=== PATIENT | female | born 1960 | race Caucasian/White ===

== ENCOUNTER → 2021-06-01 09:25 | Outpatient (BNVA) | payer MEDICARE, MEDICAID, SELFPAY | PROVIDERS: PCP Nurse Practitioner Family; Referring Provider Family Medicine; Visit Provider Orthopaedic Surgery | DX: M25.511 Pain in right shoulder (principal); M67.911 Unspecified disorder of synovium and tendon, right shoulder | CPT/HCPCS: 73030 ==

== ENCOUNTER 2021-06-03 06:00 | Outpatient (RCR) | payer MEDICARE, MEDICAID, SELFPAY | END 2021-06-08 23:59 | disposition home or self-care (01) | LOC: MPT 06:00 | PROVIDERS: PCP Nurse Practitioner Family; Visit Provider Orthopaedic Surgery | DX: M25.511 Pain in right shoulder (principal) | CPT/HCPCS: 97110; 97161 ==

== ENCOUNTER 2021-06-09 06:00 | Outpatient (RCR) | payer MEDICARE, SELFPAY | END 2021-07-08 23:59 | disposition home or self-care (01) | LOC: MPT 06:00 | PROVIDERS: PCP Nurse Practitioner Family; Visit Provider Orthopaedic Surgery | DX: M67.813 Other specified disorders of tendon, right shoulder (principal) | CPT/HCPCS: 97110; 97140; G0283 ==

== ENCOUNTER 2021-07-09 06:00 | Outpatient (RCR) | payer MEDICARE, SELFPAY | END 2021-08-08 23:59 | disposition home or self-care (01) | LOC: MPT 06:00 | PROVIDERS: PCP Nurse Practitioner Family; Visit Provider Orthopaedic Surgery | DX: M67.813 Other specified disorders of tendon, right shoulder (principal) | CPT/HCPCS: 97110; 97140; G0283 ==

== ENCOUNTER 2021-08-16 07:50 | Outpatient (CLI) | payer MEDICARE, SELFPAY ==
--- NOTE | 2021-08-16 08:00 | MR_ITS ---
WS: [id number] MRI RIGHT SHOULDER HISTORY: RIGHT shoulder pain for 4 months. No injury. COMPARISON: Shoulder radiograph 06/01/2021 TECHNIQUE: Multiplanar sequences of the shoulder joint are submitted. Moderate AC joint hypertrophy. No widening of the AC joint but there is thickening of the joint and i ncreased T2 signal. Mild encroachment upon the supraspinatus muscle. There is a moderate amount of fl uid in the subacromial and subdeltoid bursa. No os acromion. Biceps tendon is very thin caliber at th e bicipital groove but it does appear to be appropriately positioned. Supraspinatus tendon is being impinged upon by the AC joint arthritis. There is a partial tear distal ly involving the insertion site. There is additional irregularity along the surface of the tendon. Te ndon distally is surrounded by fluid. No retraction. Increased T2 signal along the tendon sheath of t he infraspinatus. Suspect there is insertion site tear with interstitial extension of the fluid. Qual ity of this examination is degraded by motion. Marked tendinopathy in the subscapularis tendon. Mild muscle atrophy without edema involving the supraspinatus. Moderate narrowing of the glenohumeral joint. Intrasubstance degeneration in the labrum. No loose bod ies are identified. MR/MR shoulder RT wo con* [id number] IMPRESSION: 1. Quality of this examination is degraded by motion artifact. Patient was leonides ble to remain still due to pain and respiratory motion. 2. Moderate AC joint hypertrophy with encroachment upon the supraspinatus. 3. Moderate size subacromial and subdeltoid bursitis and a moderate effusion s urrounding the humeral head. 4. Insertion site tears and tendinopathy of the infraspinatus and supraspinatu s tendons. 5. Moderate labral intrasubstance degeneration with moderate glenohumeral join t narrowing.
== END 2021-08-16 07:51 | disposition home or self-care (01) ==
LOC: RADSHAW 07:52
PROVIDERS: PCP Nurse Practitioner Family; Visit Provider Orthopaedic Surgery
DX: M67.911 Unspecified disorder of synovium and tendon, right shoulder (principal); M75.51 Bursitis of right shoulder; M25.411 Effusion, right shoulder; M75.101 Unspecified rotator cuff tear or rupture of right shoulder, not specified as traumatic
CPT/HCPCS: 73221

== ENCOUNTER → 2021-08-25 12:39 | Outpatient (BNVA) | payer MEDICARE, SELFPAY | PROVIDERS: PCP Nurse Practitioner Family; Visit Provider Orthopaedic Surgery | DX: Z20.822 Contact with and (suspected) exposure to COVID-19 (principal); M75.101 Unspecified rotator cuff tear or rupture of right shoulder, not specified as traumatic | CPT/HCPCS: 87635 ==

== ENCOUNTER 2021-08-30 07:04 | Day surgery (SDC) | payer MEDICARE, SELFPAY ==
[2021-08-27 15:36] VITALS: BMI 34.0
[2021-08-30] VITALS (12 sets, daily range): BP systolic 114–152; BP diastolic 68–83; PULSE 48–97; RESP 12–20; TEMP 36.1–36.7; O2SAT 96–100
--- NOTE | 2021-08-30 08:18 | ANES.PREANE2 ---
Pre-Anesthetic Assessment Pre-Anesthetic Assessment: Height/Weight: Height 1.57 m Weight 84.368 kg Temp Pulse Resp BP Pulse Ox 97.8 F 68 18 122/83 98 08/30/21 07:54 08/30/21 07:54 08/30/21 07:54 08/30/21 07:54 08/30/21 07:54 Preop Diagnosis: Rotator cuff tear, Osteoarthritis AC joint right shoulder Proposed Procedure: Operation Date: 08/30/21 09:20 Proposed Procedures p Shoulder Arthroscopy 23837 M75.101(Right) - Nagi Moncada MD s Rotator Cuff Repair(Right) - Nagi Moncada MD Familial anesthetic complications: None Was Beta Rubina taken within 24 hours: N/A Was Clonidine taken within 24 hours: N/A Last intake: > 8hrs Social: Social History: Tobacco and No alcohol Exam: Pre-Anes Outpt Exam: alert, oriented x 3, clear to auscultation bilaterally and regular rate & rhythm Airway: Cervical ROM: WNL MP: 2 Dentition: False Anesthetic Plan: ASA status: 1 Anesthesia: General and Regional (specify below) Risk of > 500 ml blood loss (7ml/kg in children): No PFSH Anesthesia PFSH: Social History Smoking and tobacco status: current every day smoker (1/2 pack per day ) Data Anesthesia Cardiac Studies: No Data to Display
[2021-08-30] MEDS: fentaNYL 50 mcg/mL INJ 2mL 100 MCG IVP (08:27)
[2021-08-30] MEDS: sodium chloride 0.9% 1,000 ML 30 ML IV (08:48)
--- NOTE | 2021-08-30 08:52 | SUR.PREOP ---
right arm supported on pillow.
[2021-08-30] MEDS: acetaminophen 500 mg Tablet 1000 MG PO (09:12)
--- NOTE | 2021-08-30 09:13 | ANES.PROC ---
Anesthesia Procedures Procedure/Date: 08/30/21 Nerve Block ^: Nerve Block 1: Main Anesthesia: general anesthesia Time Out Performed: Yes Consent: requested by attending/covering physician, from patient, risks and benefits reviewed and patient agrees to proceed Nerve block location: interscalene (R) Anesthesia monitors applied: pulse oximetry, EKG, BP cuff and oxygen Nerve block position: semi sitting Anesthetic Used: ropivicaine 0.5% and with decadron (4 mg) Amount of anesthesia used (mL): 30 Ultrasound used to: recognize landmarks Nerve Stimulator Used?: No Interscalene/Femoral BLK: 2 stimuplex 22 g needle used for position and inplane approach, visualize local anesthetic spread and no vascular puncture identified Injection: neg aspiration of heme Patient Tolerated Procedure: well and no complications Complications: none
--- NOTE | 2021-08-30 09:14 | W.PM.OPSUD ---
Surgery/Procedure H&P Update DATE OF PROCEDURE: August 30, 2021 DATE H&P PERFORMED: 08/25/21 H&P UPDATE INFORMATION: I have reviewed H&P completed within last 30 days PREOP DIAGNOSIS: Rotator cuff tear, Osteoarthritis AC joint right shoulder PLANNED PROCEDURE: Operation Date: 08/30/21 09:20 Proposed Procedures p Shoulder Arthroscopy 00817 M75.101(Right) - Nagi Moncada MD s Rotator Cuff Repair(Right) - Nagi Moncada MD
--- NOTE | 2021-08-30 11:08 | PM.OP ---
Operative Report Date of procedure: August 30, 2021 Pre-op Diagnosis: Rotator cuff tear, Osteoarthritis AC joint right shoulder, impingement Post-op diagnosis: same Post-op Findings: Same Procedure Done: Arthroscopic right rotator cuff repair, arthroscopic right subacromial decompression, arthroscopic right distal clavicle excision Implants: Dodge [employer] Nephew Helicoil 5.5 mm Pathology: none sent Surgeon: Nagi Moncada Anesthesia: General and Nerve Block (Interscalene block) Estimated blood loss (mL): 10 Complications: None Findings: The patient had a full-thickness tear of the rotator cuff approximately a centimeter and a half from anterior to posterior with a centimeter of retraction in the central rotator cuff. She had gentle spurring of her acromion and a large mitten degenerative changes of the distal clavicle. Condition: stable Disposition: PACU Procedure: The patient was taken to the operating room after interscalene block was placed by anesthesia. She was given 2 g of Ancef and a general anesthesia. She is positioned in the lateral position with her right arm in 15 pounds of traction. A timeout was performed. The shoulder was entered through the standard posterior lateral approach. The glenohumeral arthroscopy was performed. The rotator cuff was noted from the articular aspect. The biceps tendon was probed and found to be healthy. No labral tearing or chondromalacia of significance was noted. The scope was then directed to the subacromial space and a lateral portal opened up with a scalpel blade. Bursal tissue was removed revealing a prominence to the anterior acromion and the a large degenerative right distal clavicle. A 5.5 mm bur was used to remove approximately 4 mm of anterior and inferior acromion. Working through the anterior portal the distal clavicle was outlined with the Dodge and Nephew Werewolf probe and approximately 8 mm of distal clavicle excised. Attention was then focused on the rotator cuff. The full-thickness tear was identified in the central lateral rotator cuff. The footprint was lightly debrided with incisor shaver. And centrally in the footprint a Dodge and Nephew Helicoil 5.5 mm anchor was placed. A Dodge and [employer] FirstPass suture passer was used to shuttle 1 limb of Ultratape through the posterior rotator cuff tear approximately 5 mm from the edge and a second limb of tape same distance from the edge along the anterior aspect of the tear. The braided suture was passed in a central and more medial position approximately 8 mm from the tendon edge. The tape was secured followed by the braided suture bringing the rotator cuff to the debrided footprint of the bone. The repair was probed and found to be stable. The shoulder was irrigated with saline. Portals were closed with 3-0 Prolene. Sterile dressings were applied. Patient was extubated and taken recovery room in stable condition.
--- NOTE | 2021-08-30 11:50 | SUR.PHASEII ---
first ice pack applied to right shoulder.
--- NOTE | 2021-08-30 14:52 | ANE.PACU2 ---
Inpatient post-anesthesia follow up: Airway intact: Yes Vital signs: Temperature 98.1 F Pulse Rate 54 Respiratory Rate 14 Blood Pressure 117/68 Pulse Oximetry 100 Oxygen Delivery Me thod Room Air Oxygen Flow Rate 6 Fraction of Inspir ed Oxygen Hydration adequate: Yes Nausea and vomiting: No Pain level: 2 Mental status: Baseline
== END 2021-08-30 12:50 | disposition home or self-care (01) ==
PROVIDERS: PCP Family Medicine; Visit Provider Orthopaedic Surgery
PROC: (CPT 29805; principal; 2021-08-30 09:10)
PROC: (CPT 29824; 2021-08-30 09:10)
DX: M25.511 Pain in right shoulder (principal); M75.101 Unspecified rotator cuff tear or rupture of right shoulder, not specified as traumatic; M75.41 Impingement syndrome of right shoulder; M19.011 Primary osteoarthritis, right shoulder; Z88.5 Allergy status to narcotic agent; F17.200 Nicotine dependence, unspecified, uncomplicated
CPT/HCPCS: 29824; 29826; 29827; 64415; 76942; 96374; C1713; J1100; J2405; J2704; J2710; J2795; J3010; J3490; J7030

== ENCOUNTER 2021-11-25 06:00 | Outpatient (RCR) | payer MEDICARE, SELFPAY | END 2021-12-06 23:59 | disposition home or self-care (01) | LOC: MPT 06:00 | PROVIDERS: PCP Family Medicine; Referring Provider Orthopaedic Surgery; Visit Provider Orthopaedic Surgery | DX: Z47.89 Encounter for other orthopedic aftercare (principal) | CPT/HCPCS: 97110; 97161; G0283 ==

== ENCOUNTER 2021-12-07 06:00 | Outpatient (RCR) | payer MEDICARE, SELFPAY | END 2021-12-23 23:59 | disposition home or self-care (01) | LOC: MPT 06:00 | PROVIDERS: PCP Family Medicine; Referring Provider Orthopaedic Surgery; Visit Provider Orthopaedic Surgery | DX: Z47.89 Encounter for other orthopedic aftercare (principal) | CPT/HCPCS: 97110; G0283 ==

== ENCOUNTER → 2023-01-04 13:32 | Outpatient (BNVA) | payer MEDICARE, SELFPAY | PROVIDERS: PCP Family Medicine; Referring Provider Nurse Practitioner Family; Visit Provider Orthopaedic Surgery | DX: S46.912A Strain of unspecified muscle, fascia and tendon at shoulder and upper arm level, left arm, initial encounter (principal); W01.0XXA Fall on same level from slipping, tripping and stumbling without subsequent striking against object, initial encounter | CPT/HCPCS: 73030; 99213 ==

== ENCOUNTER 2023-02-22 12:46 | Outpatient (CLI) | payer MEDICARE, SELFPAY ==
--- NOTE | 2023-02-22 12:45 | MR_ITS ---
WS: [id number] EXAMINATION: MR shoulder LT wo con* [id number] ORDER DATE: 02/22/2023 1:07 PM COMPARISON: None. HISTORY: pain CONTRAST: None. TECHNIQUE: Axial T2 STAR, coronal proton density fat sat, sagittal T2 fat sat, sagittal proton densit y fat sat, axial proton density fat sat, coronal T2 fat sat, and coronal T1 performed. FINDINGS: Moderate degenerative arthritis AC joint. Mild edema. Mild downsloping of the acromion. Small joint e ffusion. Bone marrow edema with nondisplaced fracture lines involving the posterior humeral head exte nding just above the surgical neck. No displaced fractures. No dislocation. Mild soft tissue edema. Small amount of subacromial subdeltoid fluid. Mild edema in the AC joint. Tendinopathy distal suprasp inatus with small undersurface tears. Small insertional tear distal infraspinatus. Normal teres minor . Biceps tendon intact within the bicipital groove. Partial tear of the intra-articular biceps tendon with diffuse enlargement and tendinopathy. Degenera tive fraying of the glenoid labrum. MR/MR shoulder LT wo con* [id number] IMPRESSION: 1. Nondisplaced fractures involving the RIGHT humeral head extending just abov e the surgical neck with mild edema. No displaced fractures. 2. Tendinopathy with tear involving the supraspinatus insertion. Undersurface tears involving the distal supraspinatus. 3. Tiny insertional tear distal infraspinatus. 4. Biceps tendon intact within the bicipital groove. 5. Partial intrasubstance tear with tendinopathy involving the intra-articular biceps tendon.
== END 2023-02-22 12:47 | disposition home or self-care (01) ==
PROVIDERS: PCP Family Medicine; Visit Provider Orthopaedic Surgery
DX: S46.012A Strain of muscle(s) and tendon(s) of the rotator cuff of left shoulder, initial encounter (principal); S46.212A Strain of muscle, fascia and tendon of other parts of biceps, left arm, initial encounter; S42.294A Other nondisplaced fracture of upper end of right humerus, initial encounter for closed fracture; X58.XXXA Exposure to other specified factors, initial encounter
CPT/HCPCS: 73221

== ENCOUNTER → 2023-03-07 13:10 | Outpatient (BNVA) | payer MEDICARE, SELFPAY | PROVIDERS: PCP Family Medicine; Visit Provider Orthopaedic Surgery | DX: S42.202A Unspecified fracture of upper end of left humerus, initial encounter for closed fracture (principal); W19.XXXA Unspecified fall, initial encounter | CPT/HCPCS: 99213 ==

== ENCOUNTER → 2023-04-19 09:59 | Outpatient (BNVA) | payer MEDICARE, SELFPAY | PROVIDERS: PCP Family Medicine; Visit Provider Nurse Practitioner Family | DX: S42.202A Unspecified fracture of upper end of left humerus, initial encounter for closed fracture (principal); X58.XXXA Exposure to other specified factors, initial encounter | CPT/HCPCS: 73030; 99213 ==

== ENCOUNTER 2025-04-19 14:53 | Emergency (ER) | payer MEDICARE, SELFPAY ==
[2025-04-19 14:57] VITALS: BP 130/77; PULSE 66; RESP 15; TEMP 37.3; O2SAT 98; BMI 32.9
--- OUTSIDE RECORDS SUMMARY | 2025-04-19 14:58 | XMS_ITS | Clinical Summary ---
Author Organization [employer] Address [address] Attn: Epic Prelude ADT JAVIER DOYLE [id number] Care Team Providers Care General Maintenance Technician Name Role Phone Unavailable Primary Care Provider Unavailabl e Social History Tobacco Use Types Packs/Day Years Used Date Smoking Tobacco: Never Assessed Comments Unknown Sex and Gender Information Value Date Recorded Sex Assigned at Not on file Legal Sex Female 1:56 PM CDT Gender Identity Not on file Sexual Orientation Not on file Plan of Treatment Health Maintenance Due Date Last Done Comments DTAP/TDAP/TD VACCINES (1 - Tdap) 1981 HPV/Cotest (21-29) 1983 CERVICAL CANCER SCREENING 1992 HPV/Cotest (30-65) 1992 PAP SMEAR 1992 BREAST CANCER SCREENING 2002 COLORECTAL SCREENING 2007 Colorectal Cancer Screening 2007 FIT-DNA Q 3 years 2007 FIT/FOBT Q 1 year 2007 Flex Sig/CT Colonography Q 5 years 2007 ZOSTER VACCINE (1 of 2) 2012 INFLUENZA VACCINE (#1) 2025 RSV VACCINE (60+ or ) (1 - 1-dose 75+ series) 2037
[2025-04-19 15:39] VITALS: BP 148/85; PULSE 71; O2SAT 97
--- NOTE | 2025-04-19 15:39 | W.ED.FEVER ---
HPI - Fever General: Chief Complaint: Fever Stated Complaint: generalized pain / fever Time Seen by Provider: 04/19/25 15:33 History of Present Illness: 64-year-old female who presents emergency room with fever. She is also having mouth pain. She had excess skin from the top of her mouth removed about 5 days ago. She has had continued pain. She has had fevers. Malaise. No nausea or vomiting. No altered mental status. No chest pain. No cough. No abdominal pain. She had called whomever had done the dental procedure and they said if she got worse she should go to the emergency room. Related Data Home Medications ?Medication ?Instructions ?Recorded ?Confirmed azithromycin 250 mg tablet See Rx Instructions .Route .COMPLEX 04/19/25 04/19/25 chlorhexidine gluconate 0.12 % See Rx Instructions .Route .COMPLEX 04/19/25 04/19/25 mouthwash dexamethasone 4 mg tablet See Rx Instructions .Route .COMPLEX 04/19/25 04/19/25 hydrocodone 7.5 mg-acetaminophen 1 tab PO Q8H PRN Pain 04/19/25 04/19/25 325 mg tablet ibuprofen 800 mg tablet 800 mg PO Q8H PRN Pain 04/19/25 04/19/25 lidocaine HCl 2 % mucosal solution See Rx Instructions .Route .COMPLEX 04/19/25 04/19/25 (Lidocaine Viscous) pantoprazole 40 mg tablet,delayed 40 mg PO DAILY 04/19/25 04/19/25 release Previous Rx's ?Medication ?Instructions ?Recorded amoxicillin 875 mg-potassium 1 tab PO BID 7 days #14 tabs 04/19/25 clavulanate 125 mg tablet oxycodone 5 mg tablet 5 mg PO Q8H PRN pain #20 tabs 04/19/25 Allergies Allergy/AdvReac Type Severity Reaction Status Date / Time codeine Allergy Intermediate ALGY-Hives Verified 04/19/23 09:59 Review of Systems Narrative: Constitutional symptoms: Negative except as documented in HPI. Skin symptoms: Negative except as documented in HPI. Eye symptoms: Negative except as documented in HPI. ENMT symptoms: Negative except as documented in HPI. Respiratory symptoms: Negative except as documented in HPI. Cardiovascular symptoms: Negative except as documented in HPI. Gastrointestinal symptoms: Negative except as documented in HPI. Genitourinary symptoms: Negative except as documented in HPI. Musculoskeletal symptoms: Negative except as documented in HPI. Neurologic symptoms: Negative except as documented in HPI. Psychiatric symptoms: Negative except as documented in HPI. Endocrine symptoms: Negative except as documented in HPI. [facility] ED PFSH: Social History Smoking and tobacco/nicotine status: current every day tobacco/nicotine user (1/2 pack per day ) Physical Exam Narrative: EXAM NARRATIVE: General: Alert, no acute distress. Skin: Warm, dry. Head: Normocephalic, atraumatic. Neck: Supple, trachea midline. Eye: Extraocular movements are intact. Ears, nose, mouth and throat: mucosa moist. Top of her mouth where she had procedure appears fairly normal. She is edentulous. Cardiovascular: Regular, Normal peripheral perfusion. Respiratory: Lungs are clear to auscultation, respirations are non-labored, breath sounds are equal, Symmetrical chest wall expansion. Gastrointestinal: Soft, Nontender, Non distended Musculoskeletal: Normal ROM, no deformity. Neurological: Alert and oriented, No focal neurological deficit observed. Psychiatric: Cooperative, appropriate mood & affect. Course Vital Signs: Vital signs: Vital Signs Temperature 99.1 F 04/19/25 14:57 Pulse Rate 70 04/19/25 16:02 Respiratory Rate 15 04/19/25 14:57 Blood Pressure 148/85 04/19/25 15:39 Pulse Oximetry 97 04/19/25 16:02 Oxygen Delivery Me thod Room Air 04/19/25 16:02 MDM - Fever Medical Decision Making Medical decision making: Differential diagnosis including but not limited to and based on the above HPI, review of systems and physical exam: Could be a postop infection but does not appear infected. We will check a urine and basic lab work with blood cultures. Rule out UTI etc. orders placed to evaluate differential diagnosis based on the above differential, HPI and physical exam Lab Review: Laboratory results were reviewed and interpreted by myself the emergency room physician. No leukocytosis. No anemia. No renal failure. Lactate is negative. Urinalysis is negative for infection. I reviewed the patient's medical record. Reexamination: Patient remained stable. No increased work of breathing. No altered mental status. No focal motor deficits. Assessment and plan: Postoperative fever Mouth pain - Discharged home - Discussed plan with patient. Answered any questions. - Evaluation and treatment of this problem were appropriate in the emergency setting. Lab Data 04/19/25 15:45 04/19/25 15:45 Laboratory Results WBC 7.42 10^3/uL (3.29-11.43) 04/19/25 15:45 RBC 4.23 10^6/uL (3.85-5.65) 04/19/25 15:45 Hgb 12.90 g/dL (11.27-16.99) 04/19/25 15:45 Hct 40.1 % (36-47) 04/19/25 15:45 MCV 94.8 fl (85-98) 04/19/25 15:45 MCH 30.5 pg (27-33) 04/19/25 15:45 MCHC 32.2 g/dL (30-55) 04/19/25 15:45 RDW 12.5 % (12.1-15.1) 04/19/25 15:45 Plt Count 261 10^3/cmm (157-399) 04/19/25 15:45 MPV 8.7 fL (7.4-10.4) 04/19/25 15:45 Neut % (Auto) 65.0 % 04/19/25 15:45 Lymph % (Auto) 21.8 % 04/19/25 15:45 [place] % (Auto) 12.0 % 04/19/25 15:45 Eos % (Auto) 0.7 % 04/19/25 15:45 Baso % (Auto) 0.4 % 04/19/25 15:45 Neut # (Auto) 4.82 10^3/uL (1.8-7.7) 04/19/25 15:45 Lymph # (Auto) 1.6 10^3/uL (0.8-4.8) 04/19/25 15:45 [place] # (Auto) 0.9 10^3/uL (0.2-0.9) 04/19/25 15:45 Eos # (Auto) 0.1 10^3/uL (0.0-0.8) 04/19/25 15:45 Baso # (Auto) 0.0 10^3/uL (0.0-0.1) 04/19/25 15:45 Nucleated RBC % (auto) 0 % 04/19/25 15:45 Nucleated RBCs # 0.0 /100WBC 04/19/25 15:45 Sodium 139 mmol/L (136-145) 04/19/25 15:45 Potassium 3.8 mmol/L (3.5-5.1) 04/19/25 15:45 Chloride 103 mmol/L (98-107) 04/19/25 15:45 Carbon Dioxide 24 mmol/L (22-29) 04/19/25 15:45 Anion Gap 15.8 (5-19) 04/19/25 15:45 BUN 9 mg/dL (8-23) 04/19/25 15:45 Creatinine 0.6 mg/dL (0.5-0.9) 04/19/25 15:45 GFR Calculation 101.3 mL/min (90-130) 04/19/25 15:45 Glucose 93 mg/dL (65-115) 04/19/25 15:45 Calculated Osmolality 286 mOsm/kg (285-295) 04/19/25 15:45 Lactic Acid 0.7 mmol/L (0.5-2.2) 04/19/25 15:45 Calcium 9.0 mg/dL (8.5-10.5) 04/19/25 15:45 Total Bilirubin 0.3 mg/dL (0.15-1.2) 04/19/25 15:45 AST 13 U/L (0-32) 04/19/25 15:45 ALT 15 U/L (0-33) 04/19/25 15:45 Alkaline Phosphatase 128 U/L (35-105) H 04/19/25 15:45 Total Protein 6.5 g/dL (6.6-8.7) L 04/19/25 15:45 Albumin 3.7 g/dL (3.5-5.2) 04/19/25 15:45 Globulin 2.8 g/dL (1.3-4.6) 04/19/25 15:45 Urine Color Yellow (Yellow) 04/19/25 16:00 Urine Appearance Clear (CLEAR) 04/19/25 16:00 Urine pH 6.5 (5-7) 04/19/25 16:00 Ur Specific [place] 1.012 (1.005-1.030) 04/19/25 16:00 Urine Protein Negative (Negative) 04/19/25 16:00 Urine Glucose (UA) Negative (Normal) 04/19/25 16:00 Urine Ketones Negative (Negative) 04/19/25 16:00 Urine Blood Negative (Negative) 04/19/25 16:00 Urine Nitrate Negative (Negative) 04/19/25 16:00 Urine Bilirubin Negative (Negative) 04/19/25 16:00 Urine Urobilinogen 0.2 mg/dL (Negative) 04/19/25 16:00 Ur Leukocyte Esterase Negative (Negative) 04/19/25 16:00 Urine RBC 0-2 /hpf (0-2) 04/19/25 16:00 Urine WBC 0-5 /hpf (0-5) 04/19/25 16:00 Ur Squamous Epith Cells 0-5 /hpf (0-5) 04/19/25 16:00 Amorphous Sediment Not Reportable 04/19/25 16:00 Urine Bacteria None seen /hpf (NONE) 04/19/25 16:00 Hyaline Casts 0-4 /lpf H 04/19/25 16:00 No radiology studies performed this visit Discharge Plan Discharge Patient Disposition: Home Clinical Impression: Fever Condition: Stable Prescriptions: New amoxicillin-pot clavulanate 875-125 mg tablet 1 tab PO BID 7 Days Qty: 14 0RF oxycodone 5 mg tablet 5 mg PO Q8H PRN (Reason: pain) Qty: 20 0RF No Action azithromycin 250 mg tablet See Rx Instructions .ROUTE .COMPLEX Rx Instructions: Take 2 tablets on day 1 and then 1 tablet each day until all taken. ibuprofen 800 mg tablet 800 mg PO Q8H PRN (Reason: Pain) hydrocodone-acetaminophen 7.5-325 mg tablet 1 tab PO Q8H PRN (Reason: Pain) pantoprazole 40 mg tablet,delayed release (DR/EC) 40 mg PO DAILY dexamethasone 4 mg tablet See Rx Instructions .ROUTE .COMPLEX Rx Instructions: Take 2 tablets 1 hour prior to bedtime, 1 tablet in the morning and 2 tablets tomorrow 1 hour prior to bedtime. lidocaine HCl [Lidocaine Viscous] 2 % solution See Rx Instructions .ROUTE .COMPLEX Rx Instructions: Rinse with 15 ml 2x daily for 30 seconds. Do not eat, drink or rinse for 30 minutes after use. chlorhexidine gluconate 0.12 % mouthwash See Rx Instructions .ROUTE .COMPLEX Rx Instructions: Rinse with 15 ml 2x daily for 30 seconds. Do not eat, drink or rinse for 30 minutes after use. Discharge Orders: Discharge ED (Routine); Ordered 04/19/25 Ordered By: Jossy Bowman Referrals: Dick Gonzales MD [Primary Care Provider, [facility]] Patient Instructions: Opioid Safety, Pain Management, Patient Portal & Susan Instructions Activity Restrictions/Additional Instructions: Please follow-up with your oral surgeon as soon as possible. Thank you for choosing [facility] for your healthcare needs today. You have been screened and evaluated and felt safe for discharge. Health conditions do change or evolve sometimes and as such it is important that you follow up with your Primary Doctor to be re checked, 3-5 days is a general good time frame for follow up. You are always welcome to return to the ED for re assessment if your symptoms are worsening or you have new concerns Print Language: Jordanian Coding Level of Care Code ED [employer] for Lesia Davis
[2025-04-19 16:02] VITALS: PULSE 70; O2SAT 97
[2025-04-19 16:08] LABS: Hematocrit 40.1 % (36-47); Hemoglobin 12.90 g/dL (11.27-16.99); Mean Corpuscular HGB Conc 32.2 g/dL (30-55); Mean Corpuscular Hemoglobin 30.5 pg (27-33); Mean Corpuscular Volume 94.8 fl (85-98); Nucleated Red Blood Cells % 0 %; Platelet Count 261 10^3/cmm (157-399); Red Blood Count 4.23 10^6/uL (3.85-5.65); White Blood Count 7.42 10^3/uL (3.29-11.43)
[2025-04-19 16:16] LABS: Glucose Urine UA Negative (Normal); Nitrate Urine Negative (Negative); Specific Gravity, Urine 1.012 (1.005-1.030)
[2025-04-19 16:26] LABS: Alanine Aminotransferase 15 U/L (0-33); Albumin Level 3.7 g/dL (3.5-5.2); Alkaline Phosphatase 128 U/L (35-105); Anion Gap 15.8 (5-19); Aspartate Amino Transferase 13 U/L (0-32); Blood Urea Nitrogen 9 mg/dL (8-23); Calcium 9.0 mg/dL (8.5-10.5); Carbon Dioxide 24 mmol/L (22-29); Chloride 103 mmol/L (98-107); Creatinine Clr Calc Pharmacy 96.2559; Globulin 2.8 g/dL (1.3-4.6); Glucose 93 mg/dL (65-115); Lactic Sepsis W/Reflex 0.7 mmol/L (0.5-2.2); Osmolality Calculated 286 mOsm/kg (285-295); Potassium 3.8 mmol/L (3.5-5.1); Sodium 139 mmol/L (136-145); Total Protein 6.5 g/dL (6.6-8.7)
[2025-04-19 17:05] VITALS: BP 140/73; PULSE 76; O2SAT 97
== END 2025-04-19 17:06 | disposition home or self-care (01) ==
PROVIDERS: Emergency Provider Emergency Medicine; PCP Family Medicine
DX: R50.9 Fever, unspecified (principal); F17.210 Nicotine dependence, cigarettes, uncomplicated
CPT/HCPCS: 36415; 80053; 81001; 83605; 85025; 87040; 99283